=== PATIENT | female | born 1990 | race Caucasian/White ===

== ENCOUNTER 2018-02-09 16:47 | Emergency (ER) | payer SELFPAY ==
[2018-02-09] MEDS ORDERED: Adacel (T-DAP) 0.5 ML SYRINGE ONE (17:31)
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
[2018-02-09 18:09] LABS: BHCG - Serum Negative (NEGATIVE); Pregs Control Background? CLEAR/WHITE (CLR/WHITE); Pregs Control Bar Appear? YES (CONTROL BAR)
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
[2018-02-09] MEDS ORDERED: Acetaminophen 500 MG TAB ONE (19:04)
== END 2018-02-09 19:13 | disposition home or self-care (01) ==
LOC: ERS 16:47
DX: S30.1XXA Contusion of abdominal wall, initial encounter (principal); S80.02XA Contusion of left knee, initial encounter; S80.12XA Contusion of left lower leg, initial encounter; S90.32XA Contusion of left foot, initial encounter; S70.12XA Contusion of left thigh, initial encounter; S60.812A Abrasion of left wrist, initial encounter; V43.52XA Car driver injured in collision with other type car in traffic accident, initial encounter; F17.210 Nicotine dependence, cigarettes, uncomplicated; Z23 Encounter for immunization
CPT/HCPCS: 74177; 84703; 90471; 90715